=== PATIENT | male | born 1975 | race Caucasian/White ===

== ENCOUNTER 2019-09-07 18:07 | Emergency (ER) | payer BC, SELFPAY ==
[2019-09-07] VITALS (16 sets, daily range): BP systolic 130–163; BP diastolic 81–98; PULSE 79–93; RESP 15–33; TEMP 37.1; O2SAT 97–100
--- NOTE | 2019-09-07 18:32 | ED_ITS ---
I attest that this documentation has been prepared under the direction and in the presence of Manny Littlejohn MD. JeraldGriseldaSharon cordova 09/07/19;18:32 HPI - Dizziness General Chief Complaint: Dizziness Stated Complaint: abnormal ekg, high blood pressure Time Seen by Provider: 09/07/19 18:31 Source: patient and RN notes reviewed Mode of arrival: other Limitations: no limitations History of Present Illness HPI Narrative: Pt is a 44 y/o male who presents to the ED with c/o high bp that began went to pcp and had an abl ekg reports palp, merrill, abnormal vision (sees pulse), 202/110, 180/101, went to PCP's office 160/100 Related Data Allergies Allergy/AdvReac Type Severity Reaction Status Date / Time Penicillins Allergy Unknown Verified 07/24/10 16:37 [facility] Family History Family History (Updated 01/12/16 @ 23:19 by DOCTOR UNKNOWN) Father Family history of diabetes mellitus in first degree relative Mother Family history of malignant neoplasm of uterus Social History Social History Alcohol intake: never Course Vital Signs Vital signs: Vital Signs Temperature 37.1 C 09/07/19 18:12 Pulse Rate 84 09/07/19 18:12 Respiratory Rate 20 09/07/19 18:12 Blood Pressure 158/97 H 09/07/19 18:12 Pulse Oximetry 99 09/07/19 18:12 Temperature 37.1 C 09/07/19 18:12 Pulse Rate 84 09/07/19 18:12 Respiratory Rate 20 09/07/19 18:12 Blood Pressure 158/97 H 09/07/19 18:12 Pulse Oximetry 99 09/07/19 18:12
--- NOTE | 2019-09-07 18:37 | ED.RECABL ---
HPI - Recheck/Abnormal Lab/Rx General Chief Complaint: Dizziness Stated Complaint: abnormal ekg, high blood pressure Time Seen by Provider: 09/07/19 18:31 Source: patient and RN notes reviewed Mode of arrival: other Limitations: no limitations History of Present Illness HPI narrative: Pt is a 44 y/o male who presents to the ED with c/o an abnormal lab while at his PCP's office today. Pt states that he had high blood pressure and an abnormal EKG while at his PCP's office today. Pt states that he was taken off of his thyroid medication so he could manage his blood pressure. Pt was also prescribed blood pressure medication today. He states that his blood pressure was 202/110 and 180/100 while at home. He notes that his blood pressure while at his PCP's office was 160/100. Pt also reports palpitations, headache, and abnormal vision where he can see his pulse in his eyes, but denies an irregular heart rhythm, leg pain, leg swelling, cough, fever, and any recent travel. complaint: abnormal lab Initial visit (ago): hour(s) Returns today for: called because of abnormal lab/test Context: called for abnormal lab result Associated symptoms: other (palpitations, headache, and abnormal vision where he can see his pulse in his eyes) Related Data Allergies Allergy/AdvReac Type Severity Reaction Status Date / Time Penicillins Allergy Unknown Verified 07/24/10 16:37 Review of Systems Review of Systems: All systems reviewed & are unremarkable except as noted in HPI and below Constitutional: Constitutional: Denies fever(s) Eyes: Eyes: Reports change in vision (where he can see his pulse in his eyes) Cardiovascular: Cardiovascular: Denies irregular heart rhythm, Denies leg edema and Reports palpitations Respiratory: Respiratory: Denies cough Musculoskeletal: Musculoskeletal: Denies other (leg pain) Neurologic: Reports headache(s) [facility] Past Medical History Medical History (Updated 09/07/19 @ 19:53 by Manny Littlejohn MD) Low testosterone level in male TSH (thyroid-stimulating hormone deficiency) Surgical History Surgical History (Updated 09/07/19 @ 19:04 by Griselda Marques) No history of previous surgery Family History Family History (Updated 01/12/16 @ 23:19 by DOCTOR UNKNOWN) Father Family history of diabetes mellitus in first degree relative Mother Family history of malignant neoplasm of uterus Social History Social History (Updated 09/07/19 @ 19:06 by Griselda Marques) Smoking status: Unknown if ever smoked Alcohol intake: never Exam Const: General: no acute distress and alert Nutritional Appearance: well nourished Orientation/consciousness: patient oriented x3 HENMT: Head: normal to inspection Resp: Effort & Inspection: normal respiratory effort Auscultation: clear to auscultation bilaterally Cardio: Rate: regular rate Rhythm: regular rhythm Skin: General skin exam: normal color Neuro: General: patient oriented x3, moves all extremities and no focal motor deficits Speech: normal speech Extrem: General: normal to inspection and no edema Course Vital Signs Vital signs: Vital Signs Temperature 37.1 C 09/07/19 18:12 Pulse Rate 84 09/07/19 18:12 Respiratory Rate 20 09/07/19 18:12 Blood Pressure 158/97 H 09/07/19 18:12 Pulse Oximetry 99 09/07/19 18:12 Temperature 37.1 C 09/07/19 18:12 Pulse Rate 87 09/07/19 20:01 Respiratory Rate 20 09/07/19 20:01 Blood Pressure 130/85 09/07/19 20:01 Pulse Oximetry 100 09/07/19 19:23 MDM - Recheck/Abnormal Lab/Rx Medical Records Attestation: I reviewed the patient's medical records. Lab Data Attestation: I reviewed the patient's lab results. Result diagrams: 09/07/19 18:46 09/07/19 18:47 Labs: Lab Results 09/07/19 09/07/19 Range/Units 18:46 18:47 WBC 9.3 (4.5-10.0) K/mm3 RBC 6.00 (4.6-6.20) M/mm3 Hgb 18.2 H (14.0-18.0) g/dL Hct 54.9 H (42.0-52.0) % MCV
[2019-09-07 18:51] LABS: Basophils Absolute Auto 0.1 K/mm3 (0.0-0.1); Basophils Percent Auto 0.5 % (0.2-1.2); Eosinophils Absolute Auto 0.1 K/mm3 (0-0.3); Eosinophils Percent Auto 1.1 % (0-4.4); Hematocrit 54.9 % (42.0-52.0); Hemoglobin 18.2 g/dL (14.0-18.0); Immature Granulocyte Absolute 0.03 K/mm3 (0.00-0.031); Immature Granulocyte Percent A 0.3 % (0-0.5); Lymphocytes Absolute Auto 2.34 K/mm3 (0.9-3.2); Lymphocytes Percent Auto 25.1 % (18.3-44.2); Mean Corpuscular HGB Conc 33.2 g/dl (32-36); Mean Corpuscular Hemoglobin 30.3 pg (26-34); Mean Corpuscular Volume 91.5 fl (80-100); Mean Platelet Volume 11.3 fl (7.4-10.4); Monocytes Absolute Auto 0.7 K/mm3 (0.1-0.6); Monocytes Percent Auto 7.7 % (2.6-8.5); Neutrophils Absolute Auto 6.1 K/mm3 (1.3-6.7); Neutrophils Percent Auto 65.3 % (45.5-73.1); Platelet Count Result 260 k/mm3 (150-375); Red Cell Distribution Width 14.5 % (11.5-14.5); White Blood Count 9.3 K/mm3 (4.5-10.0)
[2019-09-07 19:02] LABS: Blood Urea Nitrogen 17 mg/dL (9-20); Calcium 8.7 mg/dL (8.4-10.2); Carbon Dioxide 30 mmol/L (22-30); Chloride 102 mmol/L (98-107); Estimated CRCL calculation 119 ml/min; Estimated Glomerular Filt Rate > 60; Glucose 108 mg/dL (75-110); Potassium 3.7 mmol/L (3.4-5.0); Sodium 138 mmol/L (137-145)
[2019-09-07 19:14] LABS: Troponin I < 0.012 ng/mL (0.000-0.034)
== END 2019-09-07 20:10 | disposition home or self-care (01) ==
PROVIDERS: Emergency Provider Emergency Medicine; PCP Emergency Medicine
DX: I10 Essential (primary) hypertension (principal); E03.8 Other specified hypothyroidism
CPT/HCPCS: 36415; 80048; 84484; 85025; 99284

== ENCOUNTER 2022-07-09 11:13 | Outpatient (CLI) | payer BC, SELFPAY ==
[2022-07-09 11:38] LABS: Basophils Percent Auto 0.4 % (0.2-1.2); Eosinophils Percent Auto 0.3 % (0-4.4); Hematocrit 55.9 % (42.0-52.0); Hemoglobin 19.4 g/dL (14.0-18.0); Immature Granulocyte Absolute 0.03 K/mm3 (0.00-0.031); Immature Granulocyte Percent A 0.3 % (0-0.5); Lymphocytes Absolute Auto 1.72 K/mm3 (0.9-3.2); Lymphocytes Percent Auto 18.6 % (18.3-44.2); Mean Corpuscular HGB Conc 34.7 g/dl (32-36); Mean Corpuscular Hemoglobin 30.9 pg (26-34); Mean Platelet Volume 10.9 fl (7.4-10.4); Monocytes Absolute Auto 0.8 K/mm3 (0.1-0.6); Neutrophils Absolute Auto 6.6 K/mm3 (1.3-6.7); Neutrophils Percent Auto 71.4 % (45.5-73.1); Platelet Count Result 307 k/mm3 (150-375); Red Blood Count 6.28 M/mm3 (4.6-6.20); Red Cell Distribution Width 18.6 % (11.5-14.5); White Blood Count 9.3 K/mm3 (4.5-10.0)
[2022-07-09 11:49] LABS: Alanine Aminotransferase 38 U/L (6-50); Albumin Level 4.7 g/dL (3.5-5.1); Alkaline Phosphatase 62 U/L (38-126); Anion Gap 8 mmol/L (8-16); Aspartate Amino Transferase 37 U/L (17-59); Bilirubin,Total 1.4 mg/dL (0.2-1.3); Blood Urea Nitrogen 14 mg/dL (9-20); Calcium 8.8 mg/dL (8.4-10.2); Carbon Dioxide 25 mmol/L (22-30); Chloride 102 mmol/L (98-107); Estimated Glomerular Filt Rate > 60; Glucose 94 mg/dL (65-110); Potassium 4.3 mmol/L (3.4-5.0); Sodium 135 mmol/L (137-145)
[2022-07-09 12:56] LABS: Erythrocyte Sedimentation Rate 1 mm/hr (0-20)
[2022-07-09 14:46] LABS: Free T4 Free Thyroxine 1.32 ng/mL (0.78-2.19)
== END 2022-07-09 11:14 | disposition home or self-care (01) ==
LOC: ANHLAB 11:17
PROVIDERS: PCP Internal Medicine; Visit Provider Internal Medicine
DX: R25.1 Tremor, unspecified (principal); F41.9 Anxiety disorder, unspecified; E05.90 Thyrotoxicosis, unspecified without thyrotoxic crisis or storm
CPT/HCPCS: 36415; 80053; 84439; 84443; 85025; 85652

== ENCOUNTER 2022-07-23 08:18 | Outpatient (CLI) | payer BC, SELFPAY ==
--- NOTE | 2022-07-23 08:29 | EST_ITS ---
Patient Info Name: Elver Beach Age: 46 years : 1975 Gender: Male Ht: 71 in Wt: 270 lbs BSA: 2.52 m2 HR: 88 bpm BP: 142 / 88 mmHg Heart Rhythm: Sinus Rhythm Technical Quality: Good Exam Date: 07/23/2022 8:56 AM Exam Location: [facility] Patient Status: Outpatient Admit Date: 07/23/2022 Staff Ordering Physician: Elver Silva DO Pattern Assembler: Elis Stokes RDCS Attending Provider: Elver Silva DO Referring Physician: Shira VAN; Exam Type: CA stress echo Study Info Indications I10 - Essential (primary) hypertension R07.9 - Chest pain, unspecified Treadmill exercise stress echocardiogram is performed. Summary 1. 1. Negative Hunter exercise stress test for ischemic ST changes by ECG criteria. However patient achieved only 74% MPHR for age group which reduces sensitivity of the test. 2. 2. Good functional capacity, achieving 12 METs of workload. 3. 3. Baseline hypertension. 4. 4. Appropriate HR response to exercise. 5. 5. Appropriate HR recovery at 1 minute post exercise. 6. 6. Negative stress echocardiogram for ischemia by wall motion analysis. 7. 7. Patient informed of the above results. Stress Echo Findings Left Ventricle Appropriate increase in LV endocardial thickening with systole. Appropriate augmentation of contractility with systole. No wall motion abnormality. Left Ventricle Normal LV systolic function, no wall motion abnormality. Protocol: Hunter Stress ECG Details Stage: REST Duration (min): 1 min : 39 sec Speed (mph): 0.0 Grade (%): 0 HR (bpm): 81 SBP (mmHg): 142 DBP (mmHg): 88 METS: --- Stage: REST Duration (min): 24 min : 55 sec Speed (mph): 0.0 Grade (%): 0 HR (bpm): 82 SBP (mmHg): 142 DBP (mmHg): 88 METS: --- Stage: STAGE 1 Duration (min): 1 min : 0 sec Speed (mph): 1.7 Grade (%): 10 HR (bpm): 97 SBP (mmHg): 142 DBP (mmHg): 88 METS: --- Stage: STAGE 1 Duration (min): 2 min : 0 sec Speed (mph): 1.7 Grade (%): 10 HR (bpm): 99 SBP (mmHg): 142 DBP (mmHg): 88 METS: --- Stage: STAGE 1 Duration (min): 3 min : 0 sec Speed (mph): 1.7 Grade (%): 10 HR (bpm): 101 SBP (mmHg): 151 DBP (mmHg): 95 METS: --- Stage: STAGE 2 Duration (min): 1 min : 0 sec Speed (mph): 2.5 Grade (%): 12 HR (bpm): 105 SBP (mmHg): 151 DBP (mmHg): 95 METS: --- Stage: STAGE 2 Duration (min): 2 min : 0 sec Speed (mph): 2.5 Grade (%): 12 HR (bpm): 108 SBP (mmHg): 153 DBP (mmHg): 90 METS: --- Stage: STAGE 2 Duration (min): 3 min : 0 sec Speed (mph): 2.5 Grade (%): 12 HR (bpm): 110 SBP (mmHg): 153 DBP (mmHg): 90 METS: --- Stage: STAGE 3 Duration (min): 1 min : 0 sec Speed (mph): 3.4 Grade (%): 14 HR (bpm): 114 SBP (mmHg): 158 DBP (mmHg): 95 METS: --- Stage: STAGE 3 Duration (min): 2 min : 0 sec Speed (mph): 3.4 Grade (%): 14 HR (bpm):
== END 2022-07-23 08:19 | disposition home or self-care (01) ==
PROVIDERS: PCP Internal Medicine; Visit Provider Internal Medicine
DX: R07.9 Chest pain, unspecified (principal); I10 Essential (primary) hypertension
CPT/HCPCS: 93351

== ENCOUNTER 2022-08-13 14:48 | Outpatient (CLI) | payer BC, SELFPAY ==
[2022-08-13 19:37] LABS: Prostate Specific Antigen 1.6 ng/mL (< OR = 4.0)
[2022-08-13 20:11] LABS: Basophils Absolute Auto 0.1 K/mm3 (0.0-0.1); Basophils Percent Auto 0.7 % (0.2-1.2); Eosinophils Absolute Auto 0.1 K/mm3 (0-0.3); Eosinophils Percent Auto 1.1 % (0-4.4); Hematocrit 57.2 % (42.0-52.0); Hemoglobin 19.5 g/dL (14.0-18.0); Immature Granulocyte Absolute 0.04 K/mm3 (0.00-0.031); Immature Granulocyte Percent A 0.4 % (0-0.5); Lymphocytes Percent Auto 17.6 % (18.3-44.2); Mean Corpuscular HGB Conc 34.1 g/dl (32-36); Mean Corpuscular Hemoglobin 31.6 pg (26-34); Mean Corpuscular Volume 92.6 fl (80-100); Mean Platelet Volume 12.1 fl (7.4-10.4); Monocytes Percent Auto 9.3 % (2.6-8.5); Neutrophils Absolute Auto 7.6 K/mm3 (1.3-6.7); Neutrophils Percent Auto 70.9 % (45.5-73.1); Platelet Count Result 279 k/mm3 (150-375); Red Blood Count 6.18 M/mm3 (4.6-6.20); Red Cell Distribution Width 14.7 % (11.5-14.5); White Blood Count 10.8 K/mm3 (4.5-10.0)
[2022-08-21 19:17] LABS: Estradiol, Ultrasensitive 141 pg/mL (< OR = 29)
[2022-08-26 11:48] LABS: Testosterone Free 671.9 pg/mL (35.0-155.0); Testosterone Total 2270 ng/dL (250-1100)
== END 2022-08-13 14:49 | disposition home or self-care (01) ==
LOC: ANHGOSHLAB 14:50
PROVIDERS: PCP Internal Medicine; Visit Provider Internal Medicine
DX: E29.1 Testicular hypofunction (principal); Z79.890 Hormone replacement therapy; Z12.5 Encounter for screening for malignant neoplasm of prostate
CPT/HCPCS: 36415; 82670; 84153; 84402; 84403; 85025; G0103

== ENCOUNTER → 2022-08-13 15:01 | Outpatient (CLI) | payer BC, SELFPAY ==
--- NOTE | ~2022-08-13 | XR_ITS ---
EXAMINATION: XR chest 2V 08/13/2022 15:09 INDICATION: Dyspnea. PROCEDURE: 2 view chest COMPARISON: 02/03/2019 FINDINGS: The lungs are clear. The cardiomediastinal silhouette is within normal limits. There are no pleural effusions. There is no pneumothorax suspected. IMPRESSION: 1: NO ACUTE CARDIOPULMONARY DISEASE. Reviewed, dictated and finalized at location L. IGINAL LIAISON OFFICER
== END ==
PROVIDERS: PCP Internal Medicine; Visit Provider Internal Medicine
DX: R06.00 Dyspnea, unspecified (principal); Z87.891 Personal history of nicotine dependence
CPT/HCPCS: 71046

== ENCOUNTER 2023-09-11 13:51 | Outpatient (CLI) | payer BC, SELFPAY ==
[2023-09-11 14:45] LABS: Basophils Percent Auto 0.5 % (0.2-1.2); Eosinophils Absolute Auto 0.1 K/mm3 (0-0.3); Eosinophils Percent Auto 1.1 % (0-4.4); Hematocrit 55.1 % (42.0-52.0); Hemoglobin 18.3 g/dL (14.0-18.0); Immature Granulocyte Absolute 0.03 K/mm3 (0.00-0.031); Immature Granulocyte Percent A 0.4 % (0-0.5); Lymphocytes Absolute Auto 1.71 K/mm3 (0.9-3.2); Lymphocytes Percent Auto 20.9 % (18.3-44.2); Mean Corpuscular HGB Conc 33.2 g/dl (32-36); Mean Corpuscular Hemoglobin 30.4 pg (26-34); Mean Corpuscular Volume 91.7 fl (80-100); Mean Platelet Volume 11.7 fl (7.4-10.4); Monocytes Absolute Auto 0.7 K/mm3 (0.1-0.6); Neutrophils Absolute Auto 5.7 K/mm3 (1.3-6.7); Neutrophils Percent Auto 69.1 % (45.5-73.1); Platelet Count Result 209 k/mm3 (150-375); Red Blood Count 6.01 M/mm3 (4.6-6.20); Red Cell Distribution Width 13.5 % (11.5-14.5); White Blood Count 8.2 K/mm3 (4.5-10.0)
[2023-09-11 14:59] LABS: Alanine Aminotransferase 31 U/L (6-50); Albumin Level 4.4 g/dL (3.5-5.1); Alkaline Phosphatase 63 U/L (38-126); Anion Gap 8 mmol/L (4-12); Aspartate Amino Transferase 26 U/L (17-59); Bilirubin,Total 1.3 mg/dL (0.2-1.3); Blood Urea Nitrogen 19 mg/dL (9-20); Calcium 8.6 mg/dL (8.4-10.2); Carbon Dioxide 22 mmol/L (22-30); Chloride 105 mmol/L (98-107); Cholesterol 184 mg/dL (0-200); Estimated Glomerular Filt Rate > 60; Glucose 109 mg/dL (65-110); HDL Direct 20 mg/dL; Potassium 3.7 mmol/L (3.4-5.0); Sodium 135 mmol/L (137-145); Triglycerides 207 mg/dL (<150)
[2023-09-11 15:20] LABS: LDL Cholesterol Direct 149 mg/dL
[2023-09-11 15:46] LABS: Free T4 Free Thyroxine 0.86 ng/mL (0.78-2.19)
[2023-09-11 16:10] LABS: Prostate Specific Antigen 1.8 ng/mL (< OR = 4.0)
[2023-09-15 22:16] LABS: Apolipoprotein B 118 mg/dL (<90)
[2023-09-16 14:11] LABS: Prolactin 7.6 ng/mL (***)
[2023-09-16 15:21] LABS: Testosterone Free 265.6 pg/mL (35.0-155.0); Testosterone Total 932 ng/dL (250-1100)
== END 2023-09-11 13:52 | disposition home or self-care (01) ==
PROVIDERS: PCP Internal Medicine; Visit Provider Internal Medicine
DX: E03.9 Hypothyroidism, unspecified (principal); R68.89 Other general symptoms and signs; E29.1 Testicular hypofunction; I10 Essential (primary) hypertension; Z79.890 Hormone replacement therapy; E05.90 Thyrotoxicosis, unspecified without thyrotoxic crisis or storm; Z13.220 Encounter for screening for lipoid disorders
CPT/HCPCS: 36415; 80053; 80061; 82172; 82728; 84146; 84153; 84402; 84403; 84439; 84443; 85025; G0103

== ENCOUNTER 2023-10-07 01:00 | Day surgery (SDC) | payer BC, SELFPAY ==
[2023-09-24 14:15] VITALS: BMI 36.3
[2023-10-07 06:18] VITALS: BP 134/98; PULSE 18; RESP 18; TEMP 36.1; O2SAT 95
[2023-10-07] MEDS: LACTATED RINGERS 1,000 ML 150 ML IV CONT (06:34)
--- NOTE | 2023-10-07 07:23 | PM.HPGS ---
History of Present Illness History of Present Illness Consent: Risks, benefits, and alternatives have been discussed and questions answered. Patient agrees to proceed with procedure. Chief complaint: melena,nausea Narrative: Elver Beach is a 48 year old male with occult blood in stools, nausea- already had egd, never colonoscopy Review of Systems Review of Systems: All systems reviewed & are unremarkable except as noted in HPI and below PMFSH Past Medical History Medical History Anxiety Erectile dysfunction GERD (gastroesophageal reflux disease) Headache Long-term current use of testosterone cypionate Low testosterone level in male Thyroid disorder TSH (thyroid-stimulating hormone deficiency) Surgical History Surgical History No history of previous surgery Family History Family History Father Family history of diabetes mellitus in first degree relative Mother Family history of malignant neoplasm of uterus Social History Social History (Updated 08/05/23 @ 08:39 by Balbina De La Garza [facility]) Smoking status: Never smoker Alcohol intake: never Substance use: current Substance use type: marijuana Do You Feel Safe in your Home?: Yes Lack of Transportation: No Lack of Food: Never True Current Housing: I Have Housing Concerned About Future Housing: No Difficulty Paying Gas/Electric Bills: No Difficulty Paying for Meds: No Currently Unemployed: No Education: High School Diploma/GED Difficulty w/ Childcare or Family Care: No Living arrangements: with family Spiritual care concerns: No Meds Home Medications and Allergies Home Medications Medication Instructions Recorded Confirmed Type testosterone cypionate 200 mg/mL 200 mg IM WEEKLY #10 mL 08/29/22 09/24/23 Rx intramuscular oil dexlansoprazole 60 mg 60 mg PO DAILY #90 caps 10/23/22 09/24/23 Rx capsule,biphase delayed release (Dexilant) sildenafil 100 mg tablet 100 mg PO DAILY PRN sexual 10/23/22 09/24/23 Rx activity #30 tabs propranolol 20 mg tablet 20 mg PO Q12H PRN tremor, anxiety 12/30/22 09/24/23 Rx #180 tabs duloxetine 60 mg capsule,delayed See Rx Instructions .Route 09/30/23 Rx release .COMPLEX #90 caps levothyroxine 50 mcg tablet See Rx Instructions .Route 09/30/23 Rx .COMPLEX #90 tabs losartan 100 mg tablet See Rx Instructions .Route 09/30/23 Rx .COMPLEX #90 tabs Allergies Allergy/AdvReac Type Severity Reaction Status Date / Time Penicillins Allergy Unknown Hives Verified 10/07/23 06:18 Vital Signs Vital Signs - 24 hr 10/07/23 06:18 Temperature 97 F L Pulse Rate 18 L Respiratory Rate 18 Blood Pressure 134/98 H Pulse Oximetry 95 Oxygen Delivery Room Air Exam Const: General: comfortable and no acute distress HENMT: Face/Nose/Sinus: Normal nares present Eyes: General: appearance normal, both eyes and all related structures Neck: Neck: no JVD Resp: Auscultation: clear to auscultation bilaterally Cardio: Rate: regular rate Rhythm: regular rhythm GI: Inspection: non-distended GI Palp: Yes Soft to palpation Skin: General skin exam: normal color Neuro: General: gait normal Speech: normal speech Extrem: General: normal to inspection Psych: Mental Status: mental status grossly normal Assessment and Plan Assessment and plan (1) Hematochezia: Code(s): K92.1 - Melena Status: Acute Assessment and Plan: colonoscopy
--- NOTE | 2023-10-07 07:30 | WPDANESEPPF ---
Anes - Initial Pre Proc Eval Procedure: Operation Date: 10/07/23 07:30 Proposed Procedures p Colonoscopy - Payam Fry MD Date/Time: 10/07/23 07:30 Surgeon: Payam Fry MD Pre Op Diagnosis: melena,nausea Patient Data Age: 48 Gender: M Height: 1.8 m Weight: 118 kg Last Vital Signs Temp 97 F L 10/07/23 06:18 Pulse 18 L 10/07/23 06:18 Resp 18 10/07/23 06:18 BP 134/98 H 10/07/23 06:18 Pulse Ox 95 10/07/23 06:18 O2 Del Method Room Air 10/07/23 06:18 Allergies Allergy/AdvReac Type Severity Reaction Status Date / Time Penicillins Allergy Unknown Hives Verified 10/07/23 06:18 Home Medications Medication Instructions Recorded Confirmed Type testosterone cypionate 200 mg/mL 200 mg IM WEEKLY #10 mL 08/29/22 09/24/23 Rx intramuscular oil dexlansoprazole 60 mg 60 mg PO DAILY #90 caps 10/23/22 09/24/23 Rx capsule,biphase delayed release (Dexilant) sildenafil 100 mg tablet 100 mg PO DAILY PRN sexual 10/23/22 09/24/23 Rx activity #30 tabs propranolol 20 mg tablet 20 mg PO Q12H PRN tremor, anxiety 12/30/22 09/24/23 Rx #180 tabs duloxetine 60 mg capsule,delayed See Rx Instructions .Route 09/30/23 Rx release .COMPLEX #90 caps levothyroxine 50 mcg tablet See Rx Instructions .Route 09/30/23 Rx .COMPLEX #90 tabs losartan 100 mg tablet See Rx Instructions .Route 09/30/23 Rx .COMPLEX #90 tabs Patient hx anesthesia problems: none Family hx anesthesia problems: none Results Review: All pre-operative results and documents have been reviewed as part of the pre-operative evaluation. [facility] Past Medical History Medical History Anxiety Erectile dysfunction GERD (gastroesophageal reflux disease) Headache Long-term current use of testosterone cypionate Low testosterone level in male Thyroid disorder TSH (thyroid-stimulating hormone deficiency) Surgical History Surgical History No history of previous surgery Family History Family History Father Family history of diabetes mellitus in first degree relative Mother Family history of malignant neoplasm of uterus Social History Social History (Updated 08/05/23 @ 08:39 by Balbina De La Garza CMA) Smoking status: Never smoker Alcohol intake: never Substance use: current Substance use type: marijuana Do You Feel Safe in your Home?: Yes Lack of Transportation: No Lack of Food: Never True Current Housing: I Have Housing Concerned About Future Housing: No Difficulty Paying Gas/Electric Bills: No Difficulty Paying for Meds: No Currently Unemployed: No Education: High School Diploma/GED Difficulty w/ Childcare or Family Care: No Living arrangements: with family Spiritual care concerns: No Anes - Eval Final PreProcedure Day of Procedure 10/07/23 07:30 Patient weight: obese Heart: regular rate and rhythm Lungs: clear to auscultation Airway: Mallampati scale class II Neurological: alert and oriented Last oral intake: >/= 8 hours ASA classification: III Emergent: no Anesthetic plan: proceed Anesthesia type and monitoring: general GIVS and standard monitoring Results Review: All pre-operative results and documents have been reviewed as part of the pre-operative evaluation. Informed Consent: The patient's anesthetic plan and its attendant risks and benefits were discussed with the patient/family/POA. Questions were solicited and answers provided to the satisfaction of the patient/family/POA.
[2023-10-07 07:44] VITALS: BP 101/62; PULSE 70; RESP 20; O2SAT 97
[2023-10-07 07:54] VITALS: BP 102/60; PULSE 62; RESP 20; O2SAT 98
[2023-10-07 08:04] VITALS: BP 125/76; PULSE 64; RESP 20; O2SAT 99
== END 2023-10-07 08:12 | disposition home or self-care (01) ==
PROVIDERS: PCP Internal Medicine; Visit Provider Internal Medicine Gastroenterology
PROC: 0DJD8ZZ Inspection of Lower Intestinal Tract, Via Natural or Artificial Opening Endoscopic (ICD-10-PCS; CPT 45378; principal; 2023-10-07 07:30)
DX: K92.1 Melena (principal); K64.8 Other hemorrhoids; F41.9 Anxiety disorder, unspecified; N52.9 Male erectile dysfunction, unspecified; K21.9 Gastro-esophageal reflux disease without esophagitis; E07.9 Disorder of thyroid, unspecified; F12.90 Cannabis use, unspecified, uncomplicated; E66.9 Obesity, unspecified; Z68.36 Body mass index [BMI] 36.0-36.9, adult; Z80.49 Family history of malignant neoplasm of other genital organs
CPT/HCPCS: 45378; J2704; J7120